=== PATIENT | female | born 1980 | race Caucasian/White ===

== ENCOUNTER 2018-05-27 22:53 | Emergency (ER) | payer OTHER ==
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
[2018-05-28 03:47] LABS: Urine Blood NEGATIVE (NEG); Urine Glucose NEGATIVE (NEG); Urine Protein 1+ (NEG); Urine Specific Gravity >1.030 (1.005-1.030)
--- NOTE | 2018-05-28 08:33 | RAD REPORT ---
EXAM DESCRIPTION: RAD - Hip Left 2 View - 05/28/2018 1:48 am CLINICAL HISTORY: Left hip pain status post injury FINDINGS: No fracture or dislocation is seen.
== END 2018-05-28 02:47 | disposition home or self-care (01) ==
LOC: ER 22:53
DX: S70.02XA Contusion of left hip, initial encounter (principal); W22.8XXA Striking against or struck by other objects, initial encounter; Y93.89 Activity, other specified; Y92.89 Other specified places as the place of occurrence of the external cause; Z85.3 Personal history of malignant neoplasm of breast; Z88.5 Allergy status to narcotic agent; Z88.6 Allergy status to analgesic agent; F41.9 Anxiety disorder, unspecified; F32.9 Major depressive disorder, single episode, unspecified; G40.909 Epilepsy, unspecified, not intractable, without status epilepticus
CPT/HCPCS: 81003; 81025; 99283